=== PATIENT | female | born 1985 | race Caucasian/White ===

== ENCOUNTER 2017-02-12 12:18 | Emergency (ER) | payer SELFPAY ==
[~2017-02-12] VITALS: Ht 162.6 cm; Wt 50.0 kg
[2017-02-12] MEDS ORDERED: ONDANSETRON HCL 4MG/2ML VIAL IV STA (12:30)
[2017-02-12] MEDS ORDERED: SODIUM CHLORIDE 0.9% 1,000 ML IV ONE (12:30)
[2017-02-12 13:06] LABS: BASOPHILS % 0.3 % (0.0-2.0); EOSINOPHILS % 2.9 % (0.0-5.0); HEMATOCRIT. 33.9 % (36.0-48.0); HEMOGLOBIN. 11.1 g/dL (12.0-16.0); LYMPHOCYTES % 18.6 % (20.0-50.0); MEAN CORPUSCULAR HEMOGLOBIN 27.9 pg (28.0-32.0); MEAN CORPUSCULAR VOLUME 85.1 fL (81.0-99.0); MEAN PLATELET VOLUME 9.5 fl (7.4-10.4); MONOCYTES % 4.9 % (2.0-8.0); NEUTROPHILS % 73.3 % (40.0-76.0); PLATELET 229 x1000/uL (130-400); RED BLOOD CELL COUNT 3.99 mill/uL (4.2-5.4); RED CELL DISTRIBUTION WIDTH 15.7 % (11.6-14.6)
[2017-02-12 13:10] LABS: CLARITY URINE CLEAR (CLEAR); COLOR URINE YELLOW (YELLOW); KETONES URINE NEGATIVE (NEGATIVE); LEUKOCYTE ESTERASE URINE TRACE (NEGATIVE); NITRITE URINE NEGATIVE (NEGATIVE); OCCULT BLOOD URINE 3+ (NEGATIVE); PROTEIN URINE NEGATIVE (NEGATIVE); SPECIFIC GRAVITY URINE 1.018 (1.005-1.030); UROBILINOGEN URINE 0.2 E.U./dL (0.2-1.0)
[2017-02-12 13:16] LABS: INR 1.1
[2017-02-12 13:25] LABS: CARBON DIOXIDE 27 mEq/L (21-32); CHLORIDE 106 mEq/L (98-107); ETHANOL BLOOD < 10 mg/dL
[2017-02-12 13:47] LABS: *AMPHETAMINES SCREEN URINE NEGATIVE (NEGATIVE); *BARBITURATES SCREEN URINE NEGATIVE (NEGATIVE); *BENZODIAZEPINES SCREEN URINE NEGATIVE (NEGATIVE); *COCAINE SCREEN URINE NEGATIVE (NEGATIVE); CANNABINOID URINE SCREEN NEGATIVE (NEGATIVE); METHADONE URINE SCREEN NEGATIVE (NEGATIVE); OPIATES URINE SCREEN NEGATIVE (NEGATIVE); PHENCYCLIDINE URINE SCREEN NEGATIVE (NEGATIVE)
[2017-02-12] MEDS ORDERED: KETOROLAC 15MG/ML VIAL IV ONE (15:00)
[2017-02-12] MEDS ORDERED: IOHEXOL-300 100 ML BOTTLE ONE (16:12)
[2017-02-12] MEDS ORDERED: DIATR MEGLU/DIATRIZOATE SOLN 120ML ONE (16:13)
[2017-02-12 18:53] VITALS: BP 131/72
== END 2017-02-12 19:03 | disposition home or self-care (01) ==
LOC: ER 12:27
DX: N83.292 Other ovarian cyst, left side (principal); E87.6 Hypokalemia; D64.9 Anemia, unspecified; R31.9 Hematuria, unspecified; R55 Syncope and collapse; Z98.890 Other specified postprocedural states
CPT/HCPCS: 36415; 71010; 74176; 74177; 76830; 76856; 80053; 80305; 81001; 81025; 83690; 85025; 85610; 93005; 96374; 99285; G0482; J1885; J2405; Q9967; Z7610; J7030; Q9963

== ENCOUNTER 2021-01-12 09:16 | Emergency (ER) | payer MEDICAID ==
[~2021-01-12] VITALS: Ht 157.5 cm; Wt 61.0 kg
[2021-01-12] MEDS ORDERED: SODIUM CHLORIDE 0.9% 1,000 ML IV ONE (10:00)
[2021-01-12 10:14] LABS: BASOPHILS % 0.3 % (0.0-2.0); EOSINOPHILS % 0.2 % (0.0-5.0); HEMOGLOBIN. 9.1 g/dL (12.0-16.0); LYMPHOCYTES % 13.8 % (20.0-50.0); MEAN CORPUSCULAR HEMOGLOBIN 24.1 pg (28.0-32.0); MEAN CORPUSCULAR VOLUME 76.6 fL (81.0-99.0); MONOCYTES % 10.4 % (2.0-8.0); NEUTROPHILS % 75.3 % (40.0-76.0); PLATELET 240 x1000/uL (130-400); RED BLOOD CELL COUNT 3.78 mill/uL (4.2-5.4); RED CELL DISTRIBUTION WIDTH 17.3 % (11.6-14.6)
[2021-01-12 10:21] LABS: CHLORIDE 109 mEq/L (98-107)
[2021-01-12] MEDS ORDERED: ACETAMINOPHEN 325MG TABLET PO ONE (12:00)
[2021-01-12] MEDS ORDERED: KETOROLAC 15MG/ML VIAL IV ONE (12:30)
[2021-01-12 12:31] LABS: CLARITY URINE CLEAR (CLEAR); COLOR URINE YELLOW (YELLOW); KETONES URINE 4+ (NEGATIVE); LEUKOCYTE ESTERASE URINE NEGATIVE (NEGATIVE); NITRITE URINE NEGATIVE (NEGATIVE); OCCULT BLOOD URINE NEGATIVE (NEGATIVE); PH URINE 6.5 (4.5-8.0); PROTEIN URINE TRACE (NEGATIVE)
[2021-01-12 13:36] VITALS: BP 103/61
== END 2021-01-12 13:53 | disposition home or self-care (01) ==
LOC: ER 09:16
DX: R10.30 Lower abdominal pain, unspecified (principal); Z98.890 Other specified postprocedural states
CPT/HCPCS: 36415; 80053; 81003; 81025; 83690; 85025; 93005; 96361; 96374; 99284; J1885; J7030